=== PATIENT | female | born 1965 | race Asian ===

== ENCOUNTER 2022-09-13 05:30 | Emergency (ER) | payer OTHER ==
[~2022-09-13] VITALS: Ht 152.4 cm; Wt 49.9 kg
[2022-09-13 05:35] VITALS: BP 135/78
--- NOTE | 2022-09-13 05:38 | NUR ---
to bed ambulatory
--- NOTE | 2022-09-13 06:03 | NUR ---
pt is here for left lower around perieal area. pt is alert and oriented x 4. no sign acuted distress. lower th bed
[2022-09-13] MEDS ORDERED: KETOROLAC 15 MG/ML VIAL IVP ONE (06:40)
[2022-09-13 07:04] LABS: APPEARANCE,URINE CLEAR (CLEAR); BILIRUBIN,URINE NEGATIVE (NEGATIVE); BLOOD, URINE 3+ (NEGATIVE); COLOR,URINE YELLOW (YELLOW); LEUKOCYTE ESTERASE ,URINE 2+ (NEGATIVE); NITRITE, URINE NEGATIVE (NEGATIVE); UGLUCOSE NEGATIVE (NEGATIVE)
[2022-09-13 07:08] LABS: RBC,URINE TOO NUMEROUS TO COUN /HPF (0-5)
[2022-09-13 07:11] LABS: BASOPHILS % (AUTO) 0.3 % (0.0-2.0); EOSINOPHILS # (AUTO) 0.4 K/uL (0-0.4); EOSINOPHILS % (AUTO) 4.7 % (0.0-4.0); HEMOGLOBIN 11.6 g/dL (12.0-16.0); LYMPHOCYTES # (AUTO) 1.4 K/uL (2.5-16.5); LYMPHOCYTES % (AUTO) 17.7 % (20.5-51.1); MEAN CORPUSCULAR HEMOGLOBIN 20 pg (27-31); MEAN CORPUSCULAR HGB CONC 31 g/dL (33-37); MEAN CORPUSCULAR VOLUME 65.2 fL (80-94); MONOCYTES # (AUTO) 0.7 K/uL (0.8-1.0); MONOCYTES % (AUTO) 9.3 % (1.7-9.3); NEUTROPHILS # (AUTO) 5.2 K/uL (1.8-7.7); PLATELET COUNT (AUTO) 238 K/uL (140-450); RED BLOOD CELL COUNT(AUTO) 5.67 MIL/uL (4.20-5.40); RED CELL DISTRIBUTION WIDTH 14.6 % (11.6-13.7); WHITE BLOOD COUNT (AUTO) 7.7 K/uL (4.8-10.8)
--- NOTE | 2022-09-13 07:20 | NUR ---
Received report from GEORGES Alexander. Assumed care at this time.
[2022-09-13 07:42] LABS: ALBUMIN 3.6 g/dL (3.4-5.0); ANION GAP 10.7 (8-16); CARBON DIOXIDE 29.8 mmol/L (21-32); CREATININE 0.8 mg/dL (0.6-1.3); POTASSIUM 3.5 mmol/L (3.5-5.1); TOTAL BILIRUBIN 0.5 mg/dL (0.0-1.0)
--- NOTE | 2022-09-13 08:04 | NUR ---
Pt brought back from [facility] via [facility].
[2022-09-13] MEDS ORDERED: cefTRIAXone 1,000 MG VIAL ONE (08:53)
--- NOTE | 2022-09-13 08:55 | NUR ---
Pt resting in gurney, no signs of distress, vital signs stable, safety maintained, side rails x1.
[2022-09-13] MEDS ORDERED: CEPH-588 PO (10:27)
[2022-09-13] MEDS ORDERED: TAMS0.4C96 PO (10:27)
[2022-09-13] MEDS ORDERED: MIDAZOLAM 5 MG/5 ML VIAL ONE (10:36)
--- NOTE | 2022-09-13 10:58 | NUR ---
IV removed, catheter intact and site benign. Applied folded 4x4 gauze and tape to stop bleeding.
[2022-09-13 11:00] VITALS: BP 107/58
--- NOTE | 2022-09-13 11:00 | NUR ---
Patient discharged with v/s stable. Written and verbal after care instructions given and explained. Patient alert, oriented and verbalized understanding of instructions. Ambulatory with steady gait. All questions addressed prior to discharge. ID band removed. Patient advised to follow up with PMD. Rx of Keflex and Flomax given. Patient educated on indication of medication including possible reaction and side effects. Opportunity to ask questions provided and answered.
== END 2022-09-13 11:00 | disposition home or self-care (01) ==
LOC: MED 05:30
DX: N20.1 Calculus of ureter (principal); N39.0 Urinary tract infection, site not specified; Z79.899 Other long term (current) drug therapy; Z98.890 Other specified postprocedural states; Z90.710 Acquired absence of both cervix and uterus
CPT/HCPCS: 36415; 74177; 80053; 81001; 83605; 83690; 85025; 87086; 96365; 96375; 99285; J0696; J1885; Q9967; J2250

== ENCOUNTER 2022-09-28 20:38 | Emergency (ER) | payer OTHER ==
[~2022-09-28] VITALS: Ht 152.4 cm; Wt 52.6 kg
[~2022-09-28 20:38] MED LIST: CEPH-588 PO; TAMS0.4C96 PO
[2022-09-28 21:02] VITALS: BP 133/79
--- NOTE | 2022-09-28 21:10 | NUR ---
Patient taken to bed 2.
--- NOTE | 2022-09-28 21:13 | NUR ---
Dr. Amos examining patient.
[2022-09-28] MEDS ORDERED: NACL 0.9% 1,000 ML IV ONE (21:15)
[2022-09-28] MEDS ORDERED: ONDANSETRON 4 MG/2 ML VIAL IVP ONE (21:15)
[2022-09-28] MEDS ORDERED: KETOROLAC 15 MG/ML VIAL IVP ONE (21:15)
[2022-09-28] MEDS ORDERED: MORPHINE SULFATE 4 MG/ML SYR IVP ONE (21:15)
--- NOTE | 2022-09-28 21:21 | NUR ---
PATIENT REPORTS THAT SHE HAS KIDNEY STONES, WAS SEEN APPROXIMATELY TWO WEEKS AGO FOR THE SAME ISSUE. PMH: ANEMIA
[2022-09-28 21:28] LABS: BASOPHILS % (AUTO) 0.3 % (0.0-2.0); EOSINOPHILS # (AUTO) 0.3 K/uL (0-0.4); EOSINOPHILS % (AUTO) 2.9 % (0.0-4.0); HEMATOCRIT 37.8 % (36-48); LYMPHOCYTES # (AUTO) 1.5 K/uL (2.5-16.5); LYMPHOCYTES % (AUTO) 15.5 % (20.5-51.1); MEAN CORPUSCULAR HEMOGLOBIN 21 pg (27-31); MEAN CORPUSCULAR HGB CONC 32 g/dL (33-37); MEAN CORPUSCULAR VOLUME 65.5 fL (80-94); MONOCYTES # (AUTO) 0.8 K/uL (0.8-1.0); MONOCYTES % (AUTO) 8.5 % (1.7-9.3); NEUTROPHILS # (AUTO) 7.3 K/uL (1.8-7.7); NEUTROPHILS % (AUTO) 72.8 % (42.2-75.2); PLATELET COUNT (AUTO) 276 K/uL (140-450); RED BLOOD CELL COUNT(AUTO) 5.77 MIL/uL (4.20-5.40); RED CELL DISTRIBUTION WIDTH 14.6 % (11.6-13.7)
[2022-09-28 21:52] LABS: ALBUMIN 3.7 g/dL (3.4-5.0); ANION GAP 11.7 (8-16); CREATININE 0.9 mg/dL (0.6-1.3); POTASSIUM 3.7 mmol/L (3.5-5.1); TOTAL BILIRUBIN 0.3 mg/dL (0.0-1.0)
[2022-09-28 21:58] LABS: APPEARANCE,URINE CLEAR (CLEAR); BILIRUBIN,URINE NEGATIVE (NEGATIVE); BLOOD, URINE 3+ (NEGATIVE); COLOR,URINE YELLOW (YELLOW); LEUKOCYTE ESTERASE ,URINE NEGATIVE (NEGATIVE); NITRITE, URINE NEGATIVE (NEGATIVE); UGLUCOSE NEGATIVE (NEGATIVE)
[2022-09-28 22:12] LABS: CALCIUM OXALATE CRYSTALS,UR 0-10 /HPF (None Seen); OTHER CASTS, URINE None Seen /LPF (None Seen); RBC,URINE 11-20 (MOD) /HPF (0-5); WBC,URINE 0-5 /HPF (0-5)
--- NOTE | 2022-09-28 23:01 | NUR ---
PATIENT RESTING IN BED, CURRENTLY NOT REPORTING PAIN
--- NOTE | 2022-09-29 01:35 | NUR ---
Patient discharged with v/s stable. Written and verbal after care instructions given and explained to parent/guardian. Parent/Guardian verbalized understanding of instructions. Carried with by parent. All questions addressed prior to discharge. ID band removed. Parent/Guardian advised to follow up with PMD. Rx of CHILDREN'S TYLENOL, AMOXICILLIN, CETRIZINE, BABY CHEST RUB SOOTHING OINTMENT, CHILDREN'S IBUPROFEN given. Parent/Guardian educated on indication of medication including possible reaction and side effects. Opportunity to ask questions provided and answered. DX: OTITIS MEDIA, PEDIATRIC, UPPER RESPIRATORY INFECTION, PEDIATRIC
[2022-09-29] MEDS ORDERED: ACET-8905 PO (02:01)
[2022-09-29] MEDS ORDERED: NAPR-54 PO (02:01)
[2022-09-29 02:15] VITALS: BP 128/79
--- NOTE | 2022-09-29 02:15 | NUR ---
Patient discharged with v/s stable. Written and verbal after care instructions given and explained. Patient alert, oriented and verbalized understanding of instructions. Ambulatory with steady gait. All questions addressed prior to discharge. ID band removed. Patient advised to follow up with PMD. Rx of Naproxen and Stafford given. Patient educated on indication of medication including possible reaction and side effects. Opportunity to ask questions provided and answered.
== END 2022-09-29 02:15 | disposition home or self-care (01) ==
LOC: MED 20:38
DX: N23 Unspecified renal colic (principal)
CPT/HCPCS: 36415; 74176; 80053; 81001; 85025; 96361; 96374; 96375; 99284; J1885; J2270; J2405; J7030